=== PATIENT | female | born 1950 | race Caucasian/White ===

== ENCOUNTER 2022-07-23 08:33 | Emergency (ER) | payer MEDICARE, BC, SELFPAY ==
[2022-07-23] VITALS (7 sets, daily range): BP systolic 113–131; BP diastolic 65–78; PULSE 90–99; RESP 20; TEMP 36.7; O2SAT 86–91; BMI 28.7
--- NOTE | 2022-07-23 09:11 | CRLHL7_ITS ---
For Patients: As a result of the Century Cures Act, medical imaging exams and procedure reports are released immediately into your electronic medical record. You may view this report before your referring provider. If you have questions, please contact your health care provider. Indication: Cough Technique: Chest 2 views Comparison: None Findings/Impression: Cardiovascular and mediastinum: Normal heart size with atherosclerotic calcification. Lungs and pleural spaces: Mild elevation right hemidiaphragm. No pleural effusion or pneumothorax. Patchy opacities of the right middle lobe suggestive of pneumonia. Mild bronchial wall thickening. Bones and soft tissues: Calcification in the left axilla versus a bone island at the left scapula. Right breast surgical clips. Dictated by Nima Patel MD @ 07/23/2022 10:07:55 AM (Electronically Signed)
--- NOTE | 2022-07-23 09:30 | ED_ITS ---
HPI - General Adult General Date Seen: 07/23/22 Chief complaint: Cough Stated complaint: chest cold, wants xrays of chest Time Seen by Provider: 07/23/22 08:40 Source: patient and family Mode of arrival: ambulatory Limitations: no limitations History of Present Illness HPI narrative: Patient is a very nice 71-year-old female presents here with a cough, she has had this now for approximately a week, worse when she lays down better when she sits up, this is associated with some nasal congestion 2, this worries are as she has stage IV breast cancer, that is currently doing very well, with her medications that she takes for this. She denies any significant chest pain associated with this, fevers chills, sweats, problem swallowing, nausea vomiting, diarrhea, rashes or any other issues. She thinks she needs a chest x- ray could she is worried about pneumonia. She is on Xarelto for prophylaxis of a pulmonary embolism, no history of any significant heart issues for her. Her only medication allergy she tells me is 2 Wellbutrin. Presents here with her daughter. Treatments prior to arrival: none Related Data Home Medications Medication Instructions Recorded Confirmed gabapentin 300 mg capsule 300 mg PO 3XD 07/23/22 07/23/22 ipratropium 0.5 mg-albuterol 3 mg 1 inhalation QID 07/23/22 (2.5 mg base)/3 mL nebulization soln letrozole 2.5 mg tablet 2.5 mg PO DAILY 07/23/22 07/23/22 lisinopril 10 1 tab PO DAILY 07/23/22 07/23/22 mg-hydrochlorothiazide 12.5 mg tablet omeprazole 10 mg capsule,delayed 10 mg PO DAILY 07/23/22 07/23/22 release pantoprazole 40 mg tablet,delayed 40 mg PO DAILY 07/23/22 07/23/22 release rivaroxaban 20 mg tablet (Xarelto) 20 mg PO QPM 07/23/22 07/23/22 simvastatin 20 mg tablet 20 mg PO DAILY 07/23/22 07/23/22 Previous Rx's Medication Instructions Recorded amoxicillin 875 mg-potassium 1 tab PO BID #20 tabs 07/23/22 clavulanate 125 mg tablet azithromycin 250 mg tablet See Rx Instructions PO .COMPLEX #6 07/23/22 (Zithromax Z-Flaco) tabs prednisone 20 mg tablet 20 mg PO BID #10 tabs 07/23/22 Allergies Allergy/AdvReac Type Severity Reaction Status Date / Time No Known Allergies Allergy Unknown Unverified 03/30/22 15:24 Review of Systems Status of ROS: Reports: 10 or more systems reviewed and unremarkable except as noted in History and below PFSH PFS Social History Smoking Status: Never smoker Do you use any of these nicotine containing products: None Second hand tobacco smoke exposure: No How often do you have a drink containing alcohol: never How often do you have six or more drinks on one occasion: Never AUDIT-C Alcohol total score: 0 Non-prescribed substance use: denies use service: No Exam Narrative: Exam Narrative: On examination in room 1 she is in no apparent distress she is pleasant alert speaking to me normally her saturations are 90-91% on room air she is on home oxygen that she uses. She is not on currently on oxygen here. Pupils are equal round reactive to light there is no scleral icterus or redness or TMs are normal oropharynx is normal her neck is supple full range of motion is elicited, with no meningismus, cranial nerves 3-12 are normal, chest has good air entry bilaterally with no wheezing crackles noted, heart sounds are normal, her abdomen is soft. There is no guarding no pedal splenomegaly, she moves all extremities independently and well. Negative for any swelling of her lower extremity she has a negative Homans sign. Const: Vital Signs, click to edit/add: Vital Signs - 24 hr 07/23/22 08:44 07/23/22 09:05 07/23/22 09:06 Temperature 98.1 F Pulse Rate 98 91 Pulse Rate [Right Pulse Oximeter] 92 Respiratory Rate 20 Blood Pressure 119/67 Blood Pressure [Ri ght Upper Arm] 131/78 Pulse Oximetry 91 90 90 Oxygen Delivery Me thod Room Air 07/23/22 09:15 07/23/22 09:33 07/23/22 09:45 Temperature Pulse Rate 90 99 91 Pulse Rate [Right Pulse Oximeter] Respiratory Rate Blood Pressure Blood Pressure [Ri ght Upper Arm] Pulse Oximetry 91 86 L 90 Oxygen Delivery Me thod 07/23/22 09:49 Temperature Pulse Rate 92 Pulse Rate [Right Pulse Oximeter] Respiratory Rate Blood Pressure 113/65 Blood Pressure [Ri ght Upper Arm] Pulse Oximetry 87 L Oxygen Delivery Me thod Documenting provider has reviewed patient's vital signs: yes Course Course Hospital Course: Differential diagnosis include a viral upper respiratory illness, histoplasmosis, tuberculosis, pneumonia, COPD exacerbation, emphysema, strep throat illness, bronchitis, asthma, reactive airway disease, chronic cough, medication side effects, allergic rhinitis with postnasal drip, foreign body aspiration, aspiration pneumonia, bronchiolitis, and gastroesophageal reflux disease as well as multiple other considerations. Do not think it is unreasonable to a chest x-ray, and thinking this is more likely a COPD type exacerbation, given what I am seeing in the fact is she is on Xarelto which really decreases or chance at having extension of a pulmonary embolism. I am not thinking this is heart related given her history, and she is in agreement. Reviewed the x-ray findings with her, there is some right middle lobe infiltrates and opacities, unfortunately do not have old x-rays to compare to. This is read by Radiology as showing possible pneumonia. I think reasonable alternative here to admission and she does not want this includes use of 2 different antibiotics to cover for community-acquired organisms such as augment him, and Zithromax, and then some prednisone, for her breathing as there could be a component of COPD here also. We went over signs and symptoms of worsening informed consent risks benefits given over medication and when to return here if she does worsen. They were comfortable with this plan. Vital Signs Vital signs: Initial Vital Signs Temperature 98.1 F 07/23/22 08:44 Temperature Source Temporal Artery Scan 07/23/22 08:44 Pulse Rate 92 07/23/22 08:44 Respiratory Rate 20 07/23/22 08:44 Blood Pressure 131/78 07/23/22 08:44 Blood Pressure Mean 95 07/23/22 08:44 Blood Pressure Position Sitting 07/23/22 08:44 Pulse Oximetry 91 07/23/22 08:44 Oxygen Delivery Method Room Air 07/23/22 08:44 Vital Signs Temperature 98.1 F 07/23/22 08:44 Pulse Rate 92 07/23/22 08:44 Respiratory Rate 20 07/23/22 08:44 Blood Pressure 131/78 07/23/22 08:44 Pulse Oximetry 91 07/23/22 08:44 Oxygen Delivery Method Room Air 07/23/22 08:44 Temperature 98.1 F 07/23/22 08:44 Pulse Rate 92 07/23/22 09:49 Respiratory Rate 20 07/23/22 08:44 Blood Pressure 113/65 07/23/22 09:49 Pulse Oximetry 87 L 07/23/22 09:49 Oxygen Delivery Method Room Air 07/23/22 08:44 Medical Decision Making MDM Narrative Medical decision making narrative: Life-threatening differential diagnosis includes occluded COPD exacerbation, pulmonary edema, acute coronary syndromes, pulmonary embolism, pneumonia, and pneumothorax. Other differential diagnosis considerations include asthma, bronchitis as well as other etiologies Medical Records Medical records reviewed: Yes I reviewed the patient's medical records Lab Data Lab results reviewed: Yes I reviewed the patient's lab results Labs: Lab Results 07/23/22 Range/Units 08:50 SARS-CoV-2 (PCR) Negative SARS-CoV-2 (Negative) Influenza Type A (PCR) Negative PCR FLU A (Negative) Influenza Type B (PCR) Negative PCR FLU B (Negative) RSV (PCR) Negative PCR RSV (Negative) Imaging Data Chest x-ray: Attestation: I have reviewed the pertinent imaging results. My impression: Right middle opacities pneumonia versus atelectasis. Radiologist's impression: Patient: LUIS CARLOS FRIAS Facility:?[facility] Patient ID:?[id number] Site Patient ID:?[id number]. Site :?[id number] Study:?XRay Chest 2 views-07/23/2022 9:41:57 AM Ordering Physician:Maria Elena Dixon Final Report: Indication: Cough Technique: Chest 2 views Comparison: None Findings/Impression: Cardiovascular and mediastinum: Normal heart size with atherosclerotic calcification. Lungs and pleural spaces: Mild elevation right hemidiaphragm. No pleural effusion or pneumothorax. Patchy opacities of the right middle lobe suggestive of pneumonia. Mild bronchial wall thickening. Bones and soft tissues: Calcification in the left axilla versus a bone island at the left scapula. Right breast surgical clips. Dictated by Nima Patel MD @ 07/23/2022 10:07:55 AM (Electronic Signature) Discharge Plan Discharge Clinical Impression: COPD (chronic obstructive pulmonary disease), Pneumonia Patient Disposition: Home w/ Parent or Adult Condition: Stable Instructions: COPD (Chronic Obstructive Pulmonary Disease) (DC) Additional Instructions: Home rest continue with medications we will add in the augment him, along with the prednisone, I would suggest that you continue with your inhalers, regularly, increasing shortness of breath, chest pain, or other issues then come back, use your oxygen as needed and directed at home, Activity Level: No Restrictions Discharge Diet: Regular Prescriptions: New prednisone 20 mg tablet 20 mg PO BID Qty: 10 0RF amoxicillin-pot clavulanate 875-125 mg tablet 1 tab PO BID Qty: 20 0RF azithromycin [Zithromax Z-Flaco] 250 mg tablet See Rx Instructions .ROUTE .COMPLEX Qty: 6 0RF Rx Instructions: For 250 mg dose pack: take 500 mg today (day 1), then 250 mg for 4 days (days 2-5) No Action ipratropium-albuterol 0.5 mg-3 mg(2.5 mg base)/3 mL solution for nebulization 1 INHALATION QID simvastatin 20 mg tablet 20 mg PO DAILY gabapentin 300 mg capsule 300 mg PO 3XD lisinopril-hydrochlorothiazide 10-12.5 mg tablet 1 tab PO DAILY letrozole 2.5 mg tablet 2.5 mg PO DAILY Xarelto 20 mg tablet 20 mg PO QPM omeprazole 10 mg capsule,delayed release(DR/EC) 10 mg PO DAILY pantoprazole 40 mg tablet,delayed release (DR/EC) 40 mg PO DAILY Follow Up/Referrals: Keeley Maria MD [Primary Care Provider] - Stand Alone Forms: [employer] Info Instructions
[2022-07-23 09:38] LABS: PCR FLU A Negative PCR FLU A (Negative); PCR FLU B Negative PCR FLU B (Negative); PCR RSV Negative PCR RSV (Negative)
[2022-07-23 09:45] LABS: SARS PCR* Negative SARS-CoV-2 (Negative)
== END 2022-07-23 10:20 | disposition home or self-care (01) ==
PROVIDERS: Emergency Provider Family Medicine; PCP Internal Medicine
DX: J44.9 Chronic obstructive pulmonary disease, unspecified (principal); J18.9 Pneumonia, unspecified organism
CPT/HCPCS: 71046; 87631; 99284